=== PATIENT | female | born 1970 | race Caucasian/White ===

== ENCOUNTER → 2017-03-21 | Outpatient (CLI) | payer BC ==
[2015-01-10 07:00] VITALS: BP 133/89
[~2017-03-21] MED LIST: PANT40TA3 PO
--- NOTE | 2017-03-21 17:10 | KCIC ---
MRI study of the left shoulder without contrast INDICATIONS: Left shoulder pain. Possible rotator cuff disease. TECHNIQUE: Noncontrast MRI sequences of the left shoulder were performed in all 3 planes. COMPARISON: None available. FINDINGS: There is increased signal within the supraspinatus tendon and infraspinatus tendon consistent with tendinosis. There is a complete tear of the lateral aspect of the supraspinatus tendon attachment to the greater tubercle. This is seen anteriorly. The defect measures 11 mm in transverse dimension and 11 mm in AP dimension. Subscapularis tendon and tendon of the long head of biceps are intact. No muscle atrophy is seen. Small amount of fluid is seen within the subdeltoid and subacromial bursa as a result of the complete tear. There is mild primary degenerative osteoarthritis and spurring of the AC joint. There is mild spurring of the inferior edge of the acromial process. A type III acromial process is seen. These findings may impinge the acromiohumeral space. Small focus of chronic erosion is seen within the lateral aspect of the humeral head secondary to chronic impingement. The glenohumeral joint is unremarkable and no joint effusion is seen. The glenoid labrum is intact. Small sublabral foramen is seen anteriorly and superiorly which may be seen normally. Otherwise no paralabral ganglion cyst or spinoglenoid notch ganglion cyst is seen. No fracture or marrow infiltrative process or bone contusion is seen. IMPRESSION: Complete tear of the rotator cuff. Electronically signed by: Shashank Aponte MD (03/21/2017 5:07 PM) [id number]
== END | disposition home or self-care (01) ==
LOC: KCIC MRI 15:52
PROVIDERS: ATTEND Nurse Practitioner Gerontology
DX: M75.122 Complete rotator cuff tear or rupture of left shoulder, not specified as traumatic (principal); M25.512 Pain in left shoulder
CPT/HCPCS: 73221

== ENCOUNTER 2017-06-16 05:59 | Day surgery (SDC) | payer BC ==
[~2017-06-16] VITALS: Ht 171.4 cm; Wt 86.2 kg
[2017-06-16] MEDS ORDERED: MORPHINE SULFATE 4 MG/ML DISP.SYRIN. IV PRN (07:00)
[2017-06-16] MEDS ORDERED: LIDOCAINE 1% PF 2 ML VIAL. ID PRN (07:00)
[2017-06-16] MEDS ORDERED: fentaNYL PF VIAL 100 MCG/2 ML VIAL IV PRN ×2 (07:00)
[2017-06-16] MEDS ORDERED: HYDROmorphone 2 MG/ML VIAL IV PRN (07:00)
[2017-06-16] MEDS ORDERED: CHOL100013 PO (07:00)
[2017-06-16] MEDS ORDERED: ONDANSETRON PF 4 MG/2 ML VIAL. IV PRN (07:00)
[2017-06-16] MEDS ORDERED: PROCHLORPERAZINE 10 MG/2 ML VIAL. IV PRN (07:00)
[2017-06-16] MEDS ORDERED: IV RINGERS,LACTATED 1000ML 1,000 ML IV SCH (07:00)
[2017-06-16] MEDS ORDERED: FAMO40OR3 PO (07:00)
[2017-06-16] MEDS ORDERED: CYAN10005 PO (07:00)
--- NOTE | 2017-06-16 07:01 | DISCH ---
DISCHARGE INSTRUCTIONS Condition on Discharge Condition on Discharge: Stable Activity After Discharge Activity Instructions for Disc: Other, see below Other activity instructions: arm to remain in sling Bathing Instructions: Shower-keep dressing dry Weight Bearing Status after Di: Non weight bearing Diet after Discharge Diet after Discharge: Regular Wound Incision Care Wound/Incision Care: Ice to area for comfort, Keep wound/cast CDI, Change dressing Contacting the DR. after DC Call your doctor for: Concerns you may have Follow-Up Follow up with: Fernandez in 2 wks MIRTA KING II, MD Jun 16, 2017 07:01
--- NOTE | 2017-06-16 07:02 | PDOC ---
BRIEF OPERATIVE NOTE Date: Jun 16, 2017 Pre-Op Diagnosis L RTC tear Post-Op Diagnosis same Procedure Performed L shoulder arthroscopic RTC repair Surgeon Fernandez Outside Plant Supervisor [employer] Anesthesiologist [employer] Anesthesia Type: General, Regional Blood Loss 10mL IV Fluid per Anes Urine Output NA Specimens Obtained NA Findings RTC tear Complications none Operative Note dictated MIRTA KING II, MD Jun 16, 2017 07:02
[2017-06-16 07:10] LABS: NEG OBC UR NEG; POS OBC UR POS
[2017-06-16] MEDS ORDERED: ROCURONIUM 50 MG/5 ML VIAL. ONE (07:10)
[2017-06-16] MEDS ORDERED: DEXAMETHASONE SOD PHOS 20 MG/5 ML VIAL. ONE (07:10)
[2017-06-16] MEDS ORDERED: PROPOFOL 20 ML IV ONE (07:10)
[2017-06-16] MEDS ORDERED: FAMOTIDINE 20 MG/2 ML VIAL ONE (07:10)
[2017-06-16] MEDS ORDERED: ONDANSETRON PF 4 MG/2 ML VIAL. ONE (07:10)
[2017-06-16] MEDS ORDERED: LIDOCAINE 2% PF Vial for OR 5 ML VIAL. ONE (07:10)
[2017-06-16] MEDS ORDERED: MIDAZOLAM HCL/PF 2 MG/2 ML VIAL. ONE (07:12)
[2017-06-16] MEDS ORDERED: ROPIVacaine 0.5% PF 30 ML VIAL. ONE (07:12)
[2017-06-16] MEDS ORDERED: fentaNYL PF VIAL 100 MCG/2 ML VIAL ONE (07:12)
[2017-06-16] MEDS ORDERED: PROPOFOL 100 ML IV ONE (07:21)
[2017-06-16] MEDS ORDERED: KETAMINE HCL 500 MG/10 ML VIAL. ONE (07:22)
[2017-06-16] MEDS ORDERED: EPINEPHrine VIAL 30 MG/30 ML VIAL ONE (07:23)
[2017-06-16] MEDS ORDERED: NEOSTIGMINE 10 MG/10 ML VIAL. ONE (08:09)
[2017-06-16] MEDS ORDERED: GLYCOPYRROLATE 1 MG/5 ML VIAL. ONE (08:09)
[2017-06-16] MEDS ORDERED: PHENYLEPHRINE in 0.9% NACL PF 1 MG/10 ML DISP.SYRIN. IV ONE (08:26)
[2017-06-16] MEDS ORDERED: ONDA4TAB10 SL (09:27)
[2017-06-16] MEDS ORDERED: DOCU-109 PO (09:27)
[2017-06-16] MEDS ORDERED: OXYC-323 PO (09:27)
[2017-06-16] MEDS ORDERED: ALBUTEROL SULFATE 2.5 MG/3 ML NEBU. NEB PRN (09:45)
[2017-06-16] MEDS ORDERED: oxyCODONE/APAP 5/325 1 TAB TABLET PO ONE (09:45)
--- NOTE | 2017-06-16 09:49 | OP ---
DATE OF SURGERY: 06/16/2017 SURGEON: Shashi King M.D. CATALYST OPERATOR CHIEF: Isidra Blas. ANESTHESIA: General plus regional nerve block. PREOPERATIVE DIAGNOSIS: Left shoulder rotator cuff tear. POSTOPERATIVE DIAGNOSIS: Left shoulder rotator cuff tear. PROCEDURE PERFORMED: Left shoulder arthroscopic rotator cuff repair. COMPONENTS INSERTED: [employer] HEALICOIL anchor x 1. ESTIMATED BLOOD LOSS: 10 mL. COMPLICATIONS: None. FINDINGS: 1. The patient had a full-thickness leading edge tear of her supraspinatus, approximately 12 mm in length. 2. Intact cartilage at the glenohumeral joint. 3. Intact labrum circumferentially, including biceps. 4. No biceps pathology. 5. Rotator cuff was intact, with the exception of above-noted finding. 6. No loose bodies. REASON FOR PROCEDURE: The patient is a very pleasant 47-year-old female with persistent pain and left shoulder dysfunction that failed conservative therapies including injections and months of physical therapy. Because of this, we obtained an MRI and had discussion of the risks, benefits and alternatives of the above surgery and she elected to proceed. DESCRIPTION OF PROCEDURE: The patient was greeted in the preoperative area by myself, where the correct extremity was marked and verified. She was taken to the operative suite and antibiotics were started en route. Once in the OR, she was transferred gently supine to the OR table and had successful placement of a regional nerve block by the anesthesiology team. She then underwent successful induction of a general anesthetic and we set her up in a beach chair position, with all pressure points padded, including a large pad under her legs and C-spine maintained in a neutral position. After this, we proceeded to prep and drape the left shoulder girdle in our usual sterile fashion, including Ioban at the periphery. I palpated marked surface anatomy and used the spinal needle to localize the posterosuperior portal and then incised the skin in accordance to this. After this, I introduced the blunt arthroscopic trocar into the glenohumeral joint, followed by the camera. I used a spinal needle to localize my anterosuperior portal and incised the skin in accordance with this. I then introduced my probe into the glenohumeral joint and conducted my diagnostic arthroscopy, with the above-noted findings. From the intra-articular advantage point, I then debrided the rotator cuff tear through a lateral portal I created. I prepared the footprint as well. I then removed the camera from the glenohumeral joint and reintroduced into the subacromial space. I then debrided some bursa, but overall, there really was not a lot of bursitis present. I then used a switching stick and placed a cannula over this. I then placed my HEALICOIL where I wanted my anchor and prepared the hole and then inserted my HEALICOIL anchor. After this, I then created an accessory anterosuperior portal with spinal needle localization and pulled my suture limbs out with my loop grasper. I then used the Cooley and Neph[employer] Mack First[employer] device to place the suture limbs in a simple configuration x 2 and tied these down with arthroscopic knot tying techniques and cut the free ends. I tested my repair and noted no gapping at the repair site and was happy with the repair. I took my final pictures, removed all excess arthroscopic fluid. I removed the arthroscopic instrumentation from the shoulder and closed the skin with simple interrupted 3-0 nylon. She tolerated the surgery well. No complications. At the conclusion of surgery, she had an abduction pillow sling in place to her left upper extremity. She was laid supine, transferred gently supine to the recovery room cart and taken to PACU in stable and extubated condition. Postoperative plan is nonweightbearing x 6 weeks. We will get her started on physical therapy. I will see her back in 2 weeks, sooner should a problem arise. SHASHI KING MD DR: NATO/lucina JOB#: [id number] / [id number] RAÚL
[2017-06-16 10:19] VITALS: BP 144/84
== END 2017-06-16 11:32 | disposition home or self-care (01) ==
LOC: SURG 05:59
PROVIDERS: ATTEND Orthopaedic Surgery Sports Medicine
DX: S46.012A Strain of muscle(s) and tendon(s) of the rotator cuff of left shoulder, initial encounter (principal); X58.XXXA Exposure to other specified factors, initial encounter; Y93.89 Activity, other specified; Y92.89 Other specified places as the place of occurrence of the external cause; E66.9 Obesity, unspecified; Z68.29 Body mass index [BMI] 29.0-29.9, adult; M19.91 Primary osteoarthritis, unspecified site; F41.9 Anxiety disorder, unspecified; Z98.890 Other specified postprocedural states; Z87.440 Personal history of urinary (tract) infections; Z90.49 Acquired absence of other specified parts of digestive tract; Z87.39 Personal history of other diseases of the musculoskeletal system and connective tissue
CPT/HCPCS: 29827; 81025; C1782; J0171; J0690; J1100; J2250; J2370; J2405; J2704; J2710; J2795; J3010; J3490; J7120; J7613; S0028; J0780; J2270; J2001

== ENCOUNTER → 2021-07-12 | Outpatient (CLI) | payer BC ==
[~2021-07-12] MED LIST changes: +CALC600T60 PO; +CHOL100013 PO; +CYAN-25 PO; +DOCU-109 PO; +FAMO40OR3 PO; +IBUP-1027 PO; +MULT-245 PO; +ONDA4TAB10 SL; +OXYC1TAB15 PO; -PANT40TA3 PO; +PANT40TA77 PO
--- NOTE | 2021-07-12 16:03 | PDOC1 ---
INITIAL PAIN CONSULT DATE OF SERVICE: DOS: DATE: 07/12/21 TIME: 15:56 CHIEF COMPLAINT: Chief Complaint: Low back and right lower extremity pain HISTORY OF PRESENT ILLNESS: 51-year-old female presents history of pain low back and right lower extremity for many years worse over the past year or so not the result of any specific injury or accident that she is aware but getting worse with time and with prolonged walking standing prolonged sitting patient reports is in the low back right side and some in the right flank mostly in the right posterior hip gluteus thigh and into the posterior aspect of the calf and into the foot and lateral toes on the right side patient reports is worse with walking standing again prolonged sitting occasionally wakes her from sleep once or twice a night she is reporting is not effective bowel bladder control but does affect her ability to walk occasionally patient reports she has been placing icy hot on her back as well as ice packs which do help decrease pain she has had physical therapy since 2017 as well as chiropractic treatments been ongoing which decreases the pain but only temporarily patient reports the ice packs and icy hot is most helpful she is up and take any oral medications currently for the pain patient reports it is intermittent intensity but with numbness and throbbing in the back and tingling and numbness in the leg aching as well. Patient rates her disability rating 0-10 10 me the worst is a 2-4 family responsibilities and recreation 3-5 with social activity 2-3 with occupation 0 sexual behavior to with self-care and life support activities. Patient did have an MRI scan of the lumbar spine dated June 07, 2021 showing grade 1 anterolisthesis of L5 relative to S1 with chronic L5 spondylosis unroofing of the posterior margin of the intervertebral disc without evidence of disc herniation central canal stenosis or significant foraminal narrowing L4-5 shows minimal bilateral facet degenerative change without disc herniation or central stenosis as well. Patient reports no loss of motor function but significant fatigability the right lower extremity with ambulation standing and walking and again prolonged sitting. 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 Patient reports no bowel or bladder incontinence. PAST MEDICAL HISTORY: PMH: Shortness of breath, hearing loss, dizziness, gastritis, inner ear issues PREVIOUS SURGERIES: Past Surgical Hx: Left shoulder rotator cuff repair, cholecystectomy CURRENT MEDICATIONS: Current Meds: Active Scripts Medications Dose Route/Sig Max Daily Dose Days Date Category Ibuprofen 400 Mg Tablet 400 Mg PO PRN Q6HRS PRN 07/12/21 Reported Multi Vitamin Daily (Multivitamin) 1 Each Tablet 1 Tab PO DAILY 30 07/12/21 Reported Calcium (Calcium Carbonate) 600 Mg Tablet 1,200 Mg PO BID 07/12/21 Reported Vitamin D (Cholecalciferol (Vitamin D3)) 1,000 Unit Capsule 1,000 Unit PO 06/16/17 Reported Pepcid (Famotidine) 40 Mg/5 Ml Oral.susp 40 Mg PO HS 06/16/17 Reported ALLERGIES; Allergies: Coded Allergies: No Known Drug Allergies (Unverified , 06/16/17) FAMILY HISTORY: Family Hx: Strokes and hypercholesterolemia SOCIAL HISTORY: Social Hx: Patient drinks alcohol maybe 5-10 times a year does not smoke not use any illegal illicit recreational drugs is lives with her son lives locally in [facility], patient works as an property management accountant REVIEW OF SYSTEMS: ROS: Positive for those items mentioned in history of present illness, all systems are reviewed, otherwise negative ,and are complete full and well-documented on patient's chart. PHYSICAL EXAM: VS: Blood pressure is 146/98 pulse 88 respirations 18 temperature is 98.1 F height is 5 feet 7 inches weight 194 pounds PE: PHYSICAL EXAMINATION: GENERAL: The patient is awake, alert, oriented, appropriate, very pleasant in demeanor HEENT: Shows normocephalic, atraumatic. Extraocular movements are intact and symmetrical. Patient wearing eyeglasses. Oral cavity: Mucous membranes moist and pink. Dentition is intact. NECK: Shows anterior throat supple without palpable lymphadenopathy noted. Swallow reflex symmetrical. CHEST: Shows normal on inspection. Breath sounds are clear bilaterally, no rales rhonchi or wheezes auscultated. HEART: Shows S1, S2 clear. No murmurs auscultated. ABDOMEN: Soft, nontender, nondistended, obese. No palpable organomegaly is noted. No rebound or guarding demonstrated. BACK: Shows spine grossly in the midline. Normal-appearing cervical lordotic curvature. There is slightly increased thoracic kyphosis, some minor flattening of the lumbar lordotic curvature. Lumbar paraspinous muscles show symmetrical on inspection, on palpation shows some moderate tenderness diffusely throughout the upper, middle and lower distribution of the paraspinous muscles bilaterally and also into the lower thoracic paraspinous musculature, firm and tender, but without specific trigger points, without radiation of pain. The patient has good rotational motion of the lumbar spine, both laterally as well as extension and flexion without significant difficulty. No tenderness over the spinous processes, sacrum or sacroiliac regions. EXTREMITIES: Lower extremities show deep tendon reflexes 2 in the patellar and tendo calcaneus tendons. Motor exam is 4 on a scale of 5 with right dorsiflexion, extension, quadriceps and hamstring flexion and 5/5 on the left. Peripheral pulses are 1+ posterior tibial. No peripheral edema is noted bi laterally. Lower extremities are warm and dry to touch, equal in color and appearance. Straight leg raise noted to be negative bilaterally. Gaenslen's and Jer's maneuvers are negative bilateral as well. The patient is able to stand, stand on her toes without significant difficulty loss of balance, walks with a normal-appearing gait for short distance in the office today does not appear to favor the right or left lower extremity significantly is not use any assistive devices to ambulate. SKIN: Shows warm and dry, good turgor. No edema. No sores, rashes or bruising throughout. IMPRESSION: Impression: 51-year-old female with long history low back right lower extremity pain and radicular fashion. MRI scan lumbar spine as noted Shortness of breath on gastritis Hearing loss Plan: Options were discussed the patient occluding serve medical managements physical therapies interventional techniques. Patient like to pursue eventual techniques. We discussed a lumbar epidural steroid injection using descriptions as well as anatomical models described the procedure. Patient would like to check with her insurance provider to verify what her [id number] cost would be for this procedure. Once this is determined, patient will follow follow-up with our office. JOSE ALBERTO ERICKSON MD Jul 12, 2021 16:03
== END | disposition home or self-care (01) ==
LOC: PNCL 14:22
PROVIDERS: ATTEND Anesthesiology
DX: M54.50 Low back pain, unspecified (principal); M79.604 Pain in right leg; E66.9 Obesity, unspecified; K21.9 Gastro-esophageal reflux disease without esophagitis; M19.90 Unspecified osteoarthritis, unspecified site; F41.9 Anxiety disorder, unspecified; Z90.49 Acquired absence of other specified parts of digestive tract; Z87.440 Personal history of urinary (tract) infections; Z79.899 Other long term (current) drug therapy
CPT/HCPCS: G0463

== ENCOUNTER → 2021-07-17 | Outpatient (CLI) | payer BC ==
[~2021-07-17] MED LIST changes: +IOHEXOL 180 MG/ML 10 ML VIAL. ONE; +methylPREDNISolone ACETATE 40 MG/ML VIAL. ONE; +methylPREDNISolone ACETATE 80 MG/ML VIAL. ONE
--- NOTE | 2021-07-17 08:22 | PDOC4 ---
Procedure Note: ICD 10 Code: ICD 10 Code: M54.17 M51.87 M4 7.817 Procedure Note: Patient was consented for lumbar epidural steroid injection with fluoroscopic guidance. Risks were discussed including but not limited to: Bleeding, infection, possibility of epidural hematoma and subsequent neurological compromise, dural puncture, headaches, spinal cord and/or nerve damage, side effects of steroid medication, and poor results regarding pain control. Patient understands and wished to proceed. Procedure is lumbar epidural steroid injection under local anesthetic using st erile prep and drape at the L5-S1 level using C-arm fluoroscopic guidance in both AP and lateral views medications injected is 120 mg Depo-Medrol +10mL preservative-free normal saline and 2 mL contrast- condition at discharge is stable patient tolerated procedure well had no complications. JOSE ALBERTO ERICKSON MD Jul 17, 2021 08:22
--- NOTE | 2021-07-17 08:22 | PDOC ---
Progress Note - Pain Clinic Date of Service: DOS: DATE: 07/17/21 TIME: 08:18 Diagnosis: Dx: Lumbar radiculopathy with lumbar degenerative disease and lumbar spondylosis History or Present Illness: HPI: 51-year-old female returns status post evaluation complains of pain low back right lower extremity posterior gluteus posterior thigh posterior calf with some pain on the left side as well mostly at night and first thing in the morning patient reports the pain is increasing in the low back also some rating to the mid back rates a 9 on scale 10 is worst 8 on average 5 its least is a [address] aching and dull numbness and tingling in the leg and radiating on and off in intensity patient reports the left side is becoming more noticeable in the mornings but after few minutes of walking and standing the left side does get better patient reports no bowel or bladder incontinence otherwise sleeping fairly well through the night awakens her from sleep maybe once a night at the most patient reports no new motor or sensory deficits but significant fatigability in the right lower extremity with ambulation standing. Physical Exam: VS: Blood pressure is 142/93 pulse 87 respirations 18 temperature 98.5 F height is 5 feet 9 inches weight is 194 pounds PE: PHYSICAL EXAMINATION: GENERAL: The patient is awake, alert, oriented, appropriate, very pleasant in demeanor HEENT: Shows normocephalic, atraumatic. Hearing aids. Extraocular movements are intact and symmetrical. Patient wearing eyeglasses. Oral cavity: Mucous membranes moist and pink. Dentition is intact. NECK: Shows anterior throat supple without palpable lymphadenopathy noted. Swallow reflex symmetrical. CHEST: Shows normal on inspection. Breath sounds are clear bilaterally. HEART: Shows S1, S2 clear. No murmurs auscultated. ABDOMEN: Soft, nontender, nondistended. No palpable organomegaly is noted. BACK: Shows spine grossly in the midline. Normal-appearing cervical lordotic curvature. There is slightly increased thoracic kyphosis, some minor flattening of the lumbar lordotic curvature. Lumbar paraspinous muscles show symmetrical on inspection, on palpation shows some moderate tenderness diffusely throughout the upper, middle and lower distribution of the paraspinous muscles without specific trigger points, without radiation of pain. The patient has good rotational motion of the lumbar spine, both laterally as well as extension and flexion without significant difficulty. EXTREMITIES: Lower extremities show deep tendon reflexes 2 in the patellar and tendo calcaneus tendons. Motor exam is 4 on a scale of 5 with right dorsiflexion, extension, quadriceps and hamstring flexion and 5/5 on the left. Peripheral pulses are 1 to posterior tibial. No peripheral edema is noted bilaterally. Lower extremities are warm and dry to touch, equal in color and appearance. SKIN: Shows warm and dry, good turgor. No edema. No sores, rashes or bruising throughout. Procedure: Procedure: Options were discussed with the patient. Patient's old chart was reviewed as her current medication regimen updated current review of systems updated today as well. We will proceed with a lumbar epidural steroid injection today with fluoroscopic guidance. Risks were discussed including but not limited to: Bleeding, infection, possibility of epidural hematoma and subsequent neurological compromise, dural puncture, headaches, spinal cord and/or nerve damage, side effects of steroid medication, and poor results regarding pain control. Patient understands and wished to proceed. Patient return to clinic in approximately 2 weeks for follow-up, was counseled as to return appointment, activity level, and side effects to be aware of. Medication Injected: Med Injected: Procedure is lumbar epidural steroid injection under local anesthetic using sterile prep and drape at the L5-S1 level using C-arm fluoroscopic guidance in both AP and lateral views medications injected is 120 mg Depo-Medrol +10mL preservative-free normal saline and 2 mL contrast- condition at discharge is stable patient tolerated procedure well had no complications. Condition at Discharge: Condition at Discharge: Condition at discharge stable, patient tolerated seizure well and had no complications. JOSE ALBERTO ERICKSON MD Jul 17, 2021 08:22
== END | disposition home or self-care (01) ==
LOC: PNCL 07:33
PROVIDERS: ATTEND Anesthesiology
DX: M51.16 Intervertebral disc disorders with radiculopathy, lumbar region (principal); M47.26 Other spondylosis with radiculopathy, lumbar region; E66.9 Obesity, unspecified; K21.9 Gastro-esophageal reflux disease without esophagitis; M19.90 Unspecified osteoarthritis, unspecified site; F41.9 Anxiety disorder, unspecified; Z79.899 Other long term (current) drug therapy; Z90.49 Acquired absence of other specified parts of digestive tract; Z98.890 Other specified postprocedural states
CPT/HCPCS: 62323; J1030; J1040; Q9965

== ENCOUNTER 2021-09-17 06:05 | Day surgery (SDC) | payer BC ==
[~2021-09-17] VITALS: Ht 171.4 cm; Wt 88.1 kg
[~2021-09-17 06:05] MED LIST changes: +FAMO-63 PO; +FEXO60TA25 PO; +HYDROmorphone 2 MG/ML INJ. IVP PRN; -IOHEXOL 180 MG/ML 10 ML VIAL. ONE; +IV RINGERS,LACTATED 1000ML 1,000 ML IV SCH; +MORPHINE SULFATE 2 MG/ML INJ. IVP PRN; +PROCHLORPERAZINE 10 MG/2 ML VIAL. IVP PRN; +fentaNYL PF VIAL 100 MCG/2 ML VIAL IVP PRN; -methylPREDNISolone ACETATE 40 MG/ML VIAL. ONE; -methylPREDNISolone ACETATE 80 MG/ML VIAL. ONE
[2021-09-17 06:40] VITALS: BP 140/73
[2021-09-17] MEDS ORDERED: ROPIVacaine 0.5% PF 20 ML VIAL. ONE (06:56)
[2021-09-17] MEDS ORDERED: ONDANSETRON PF 4 MG/2 ML VIAL. ONE (07:05)
[2021-09-17] MEDS ORDERED: PROPOFOL 10 MG/ML (20ML) VIAL. IV ONE (07:05)
[2021-09-17] MEDS ORDERED: PROPOFOL 50 ML IV ONE (07:05)
[2021-09-17] MEDS ORDERED: fentaNYL PF VIAL 100 MCG/2 ML VIAL ONE (07:05)
[2021-09-17] MEDS ORDERED: MIDAZOLAM HCL/PF 2 MG/2 ML VIAL. ONE (07:05)
[2021-09-17] MEDS ORDERED: ROCURONIUM 50 MG/5 ML VIAL. ONE (07:05)
[2021-09-17] MEDS ORDERED: LIDOCAINE 2% PF 5 ML VIAL. ONE (07:05)
[2021-09-17] MEDS ORDERED: DEXAMETHASONE SOD PHOS 4 MG/ML VIAL ONE ×2 (07:05→09:54)
[2021-09-17] MEDS ORDERED: LIDOCAINE 1% PF 30 ML VIAL. ONE (07:09)
[2021-09-17] MEDS ORDERED: BUPIVACAINE MPF 0.5% 30 ML VIAL. ONE (07:09)
[2021-09-17] MEDS ORDERED: EPINEPHrine VIAL 30 MG/30 ML VIAL ONE (07:09)
[2021-09-17] MEDS ORDERED: PHENYLEPHRINE 10 MG/ML VIAL. ONE (07:10)
[2021-09-17] MEDS ORDERED: SUGAMMADEX SODIUM 200 MG/2 ML VIAL. IVP ONE (07:15)
[2021-09-17] MEDS ORDERED: OXYC-630 PO (07:20)
--- NOTE | 2021-09-17 07:21 | DISCH ---
DISCHARGE INSTRUCTIONS Condition on Discharge Condition on Discharge: Stable Activity After Discharge Activity Instructions for Disc: Other, see below Other activity instructions: arm to remain in sling Bathing Instructions: Shower-keep dressing dry Weight Bearing Status after Di: Non weight bearing Diet after Discharge Diet after Discharge: Regular Diet Texture: Regular Wound Incision Care Wound/Incision Care: Ice to area for comfort, Keep wound/cast CDI, Change dressing Contacting the DR. after DC Call your doctor for: Concerns you may have Follow-Up Follow up with: Fernandez in 2 wks MIRTA KING II, MD Sep 17, 2021 07:21
[2021-09-17] MEDS ORDERED: ceFAZolin 2GM PREMIX 2 GM/50 ML BAG IV ONE (08:00)
[2021-09-17] MEDS ORDERED: HYDROmorphone 2 MG/ML INJ. ONE (08:51)
--- NOTE | 2021-09-17 09:40 | PDOC4 ---
Operative Note Operative Note Date of procedure: 09/17/2021 Surgeon: Shashi King Study Lead: Preoperative diagnosis: Right shoulder rotator cuff tear Postoperative diagnosis: Same Procedure performed: Arthroscopic right shoulder rotator cuff repair Anesthesia: She had propofol administered by anesthesia, she was not connected to the cart at all for this case, she had placement of a regional nerve block prior to the surgery Findings: #1 She had some wear, grade 2 3 changes at humeral head. 2. Labrum intact circumferentially 3. Longitudinal splits in biceps 4. Rotator cuff tear involving supraspinatus and leading edge of infraspinatus 5. No loose bodies 6. Glenoid cartilage unremarkable Blood loss: 10mL Components inserted: [email or web address] Helacoil anchor times 2 Reason for procedure: Patient is a very pleasant woman who has had worsening right shoulder pain. Clinical and radiographic examination, including MRI were consistent with the preoperative diagnosis. She had tried physical therapy, anti-inflammatories, and had not had any improvement. She had undergone a successful left-sided rotator cuff repair several years ago and wished to proceed with that. Due to her symptoms and dysfunction, we had a discussion of the risks, benefits, alternatives the above surgery and he wished to proceed. Description of procedure: Patient was greeted in the preoperative holding area where the correct extremity was verified and marked. They were taken to the preoperative holding area where the anesthesiology team placed a regional nerve block. The patient was then taken back to the operative suite and antibiotics were started as they were brought back. Once in the operative room, the patient was transferred gently supine to the operating room table after successful induction of a general anesthetic. After this, she was sat up in a beachchair position maintaining her C-spine in neutral position, large pad under his legs, she was secured to the bed. We then prepped and draped her left upper extremity and shoulder girdle in our usual sterile fashion, we conducted our standard preoperative timeout. I palpated and marked surface anatomy for my planned portal sites. I then used a spinal needle to localize a posterior superior portal and incised skin in accordance with this. After this, I introduced the blunt arthroscopic trocar into the glenohumeral joint followed by the camera. I used a spinal needle to localize an anterosuperior portal and incised skin in accordance with this. I then introduced my arthroscopic probe and conducted my diagnostic arthroscopy with the above-noted findings. After this, I repositioned the camera into the subacromial space and performed a bursectomy with combination of shaver and electrocautery device, after using a spinal needle to localize a lateral portal and an accessory anterolateral portal. I then identified the rotator cuff tear and I debrided the pathologic tendon and prepared my footprint. I then placed my helacoil anchor anchors and shuttled limbs through in a simple configuration. I tied these down with arthroscopic knot-tying techniques. The tear was stable to probing and to gentle rotation of the arm. I then removed all loose bony debris and the excess arthroscopic fluid. I took my final pictures prior to this. After this, all the excess fluid and instrumentation was removed. The portals were closed with simple interrupted 3-0 nylon. Sterile dressing was applied followed by an abduction pillow sling. Patient tolerated surgery well. No complications. At the conclusion, she was laid supine and transferred gently supine to the recovery room cart and taken to the PACU in a stable and extubated condition. Postoperative plan is discharge her home, nonweightbearing for 6 weeks. Well get her started on physical therapy. She will follow up with me in 2 weeks, sooner should a problem arise. SHASHI KING II, MD Sep 17, 2021 09:39
[2021-09-17] MEDS ORDERED: oxyCODONE/APAP 5/325 1 TAB TABLET PO ONE (09:45)
[2021-09-17] MEDS ORDERED: ePHEDrine PF IN SALINE 50 MG/10 ML SYRINGE. IV ONE (09:54)
[2021-09-17 12:13] VITALS: BP 123/69
== END 2021-09-17 13:20 | disposition home or self-care (01) ==
LOC: SURG 06:05
PROVIDERS: ATTEND Orthopaedic Surgery Sports Medicine
DX: M75.101 Unspecified rotator cuff tear or rupture of right shoulder, not specified as traumatic (principal); E66.9 Obesity, unspecified; K21.9 Gastro-esophageal reflux disease without esophagitis; M19.90 Unspecified osteoarthritis, unspecified site; F41.9 Anxiety disorder, unspecified; Z90.49 Acquired absence of other specified parts of digestive tract; Z98.890 Other specified postprocedural states; Z79.899 Other long term (current) drug therapy; Z88.8 Allergy status to other drugs, medicaments and biological substances
CPT/HCPCS: 29827; A4209; A4355; A4556; A4565; A4928; A4930; A6253; C1713; J0171; J0690; J1100; J1170; J2250; J2370; J2405; J2704; J2795; J3010; J3490; A4222; A4452